=== PATIENT | male | born 1985 | race Caucasian/White ===

== ENCOUNTER 2021-10-27 12:09 | Day surgery (SDC) | payer MEDICAID ==
[~2021-10-27] VITALS: Ht 175.3 cm; Wt 72.3 kg
[2021-10-27 12:36] VITALS: BP 130/55
[2021-10-27 12:57] LABS: BASOPHILS % (AUTO) 0.7 % (0-1); EOSINOPHILS # (AUTO) 0.1 X10'3 (0-0.9); EOSINOPHILS % (AUTO) 3.3 % (0-6); HEMATOCRIT 38.4 % (42.0-52.0); HEMOGLOBIN 12.6 g/dl (14.0-17.9); LYMPHOCYTES % (AUTO) 22.7 % (21-51); MEAN CORPUSCULAR HEMOGLOBIN 25.8 PG (27.0-31.0); MEAN CORPUSCULAR VOLUME 78.1 FL (78-98); MEAN PLATELET VOLUME 7.4 FL (7.4-10.4); NEUTROPHILS % (AUTO) 72.3 % (42-75); PLATELET COUNT 175 X10'3 (140-440); RED BLOOD COUNT 4.91 X10'6 (4.70-6.10); RED CELL DISTRIBUTION WIDTH 12.9 % (11.5-14.5); WHITE BLOOD COUNT 4.2 X10'3 (4.5-11.0)
[2021-10-27] MEDS ORDERED: PROM25TA14 PO (13:01)
[2021-10-27] MEDS ORDERED: ALLO300T8 PO (13:01)
[2021-10-27] MEDS ORDERED: PRED20TA PO (13:01)
[2021-10-27] MEDS ORDERED: normal saline 1000ml 1,000 ML IV PRN (13:10)
[2021-10-27] MEDS ORDERED: heparin sodium, porcine/PF 100unit/ml 5ML syringe ONE (13:50)
[2021-10-27] MEDS ORDERED: fentaNYL/PF 50MCG/1 ML 2ML syringe ONE (13:50)
[2021-10-27] MEDS ORDERED: LIDOcaine 1%/PF 5ML 10 MG/ML VIAL ONE (13:50)
[2021-10-27] MEDS ORDERED: midazolam 1 mg/ML 2ml injection ONE (13:50)
[2021-10-27 14:58] VITALS: BP 127/75
[2021-10-27 15:15] VITALS: BP 140/90
[2021-10-27 15:30] VITALS: BP 156/94
== END 2021-10-27 15:55 | disposition home or self-care (01) ==
LOC: SSTAY O 12:09
PROVIDERS: ATTEND Radiology Vascular & Interventional Radiology
DX: C83.89 Other non-follicular lymphoma, extranodal and solid organ sites (principal); C40.21 Malignant neoplasm of long bones of right lower limb; Z79.899 Other long term (current) drug therapy
CPT/HCPCS: 36415; 36561; 76937; 77001; 85025; 99152; C1769; C1788; C1894; J1642; J2250; J3010; J3490; J7030; 99153; A4620; A6258; A6449

== ENCOUNTER 2022-08-12 11:11 | Day surgery (SDC) | payer MEDICAID ==
[~2022-08-12] VITALS: Ht 175.3 cm; Wt 72.6 kg
[~2022-08-12 11:11] MED LIST: ALLO300T8 PO; PRED20TA PO; PROM25TA14 PO
[2022-08-12 11:30] VITALS: BP 129/84
[2022-08-12] MEDS ORDERED: NO HOME MEDS (11:52)
[2022-08-12 13:20] VITALS: BP 130/88
== END 2022-08-12 13:35 | disposition home or self-care (01) ==
LOC: SSTAY O 11:11
PROVIDERS: ATTEND Radiology Diagnostic Radiology
DX: C83.39 Diffuse large B-cell lymphoma, extranodal and solid organ sites (principal); Z45.2 Encounter for adjustment and management of vascular access device
CPT/HCPCS: 36590; J7030